=== PATIENT | male | born 1935 | race Two or more races ===

== ENCOUNTER 2023-08-12 10:01 | Emergency (ER) | payer OTHER ==
[~2023-08-12] VITALS: Ht 167.6 cm; Wt 90.7 kg
[2023-08-12] MEDS ORDERED: NEURONTIN300 MG (10:32)
[2023-08-12] MEDS ORDERED: TOPROL XL25 M1 (10:32)
[2023-08-12] MEDS ORDERED: [UNRECOGNIZED DRUG - OTHER] (10:33)
[2023-08-12] MEDS ORDERED: LIPITOR20 MG (10:33)
[2023-08-12] MEDS ORDERED: MULTAQ400 MG (10:33)
[2023-08-12] MEDS ORDERED: GLUMETZA500 MG (10:33)
[2023-08-12] MEDS ORDERED: OTEZLA30 MG (10:33)
[2023-08-12] MEDS ORDERED: XARELTO20 MG (10:34)
[2023-08-12] MEDS ORDERED: PROSCAR5 MG (10:34)
[2023-08-12] MEDS ORDERED: NORVASC2.5 M1 (10:34)
[2023-08-12] MEDS ORDERED: SINGULAIR10 MG (10:34)
== END 2023-08-12 11:59 | disposition home or self-care (01) ==
LOC: ER 10:02
DX: S60.221A Contusion of right hand, initial encounter (principal); S60.211A Contusion of right wrist, initial encounter; S80.02XA Contusion of left knee, initial encounter; S80.01XA Contusion of right knee, initial encounter; W18.30XA Fall on same level, unspecified, initial encounter; Y93.89 Activity, other specified; Y92.89 Other specified places as the place of occurrence of the external cause; Y99.9 Unspecified external cause status; E11.9 Type 2 diabetes mellitus without complications; Z79.84 Long term (current) use of oral hypoglycemic drugs; I10 Essential (primary) hypertension